=== PATIENT | female | born 1985 | race Caucasian/White ===

== ENCOUNTER 2016-11-30 06:39 | Emergency (ER) | payer OTHER ==
[~2016-11-30] VITALS: Ht 162.6 cm; Wt 136.1 kg
[~2016-11-30 06:39] MED LIST: BACTRIM DS TAB1 EACH PO; EXCEDRIN CAPLE1 EACH PO; KEFLEX500 MG PO; MOBIC15 MG PO; NOHOMEMEDICATIONS; NORCO 5-325 TA1 EACH PO; PREDNISONE 20 M20 MG PO
[2016-11-30 07:05] LABS: HEMATOCRIT 38.9 % (37.0-47.0); HEMOGLOBIN 13.3 gm/dL (12.0-15.0); MCH 31.1 pg (26.0-34.0); MCHC 34.3 g/dL (28.0-37.0); MCV 90.6 fL (80.0-100.0); RBC 4.3 mil/uL (4.20-5.00); RDW 13.5 % (10.5-14.5); WBC 9.7 thou/uL (4.0-11.0)
[2016-11-30 07:13] LABS: CALCIUM 8.8 mg/dL (8.5-10.1); CREATININE 0.8 mg/dL (0.6-1.0); POTASSIUM 4.2 mmol/L (3.5-5.1)
[2016-11-30 08:55] VITALS: BP 128/73
== END 2016-11-30 08:35 | disposition home or self-care (01) ==
LOC: ER 06:39
PROVIDERS: Emergency Medicine
DX: R05 Cough (principal); F17.210 Nicotine dependence, cigarettes, uncomplicated; Z90.89 Acquired absence of other organs

== ENCOUNTER 2018-11-03 07:41 | Emergency (ER) | payer OTHER ==
[~2018-11-03] VITALS: Ht 162.6 cm; Wt 97.5 kg
[2018-11-03 09:14] VITALS: BP 122/81
== END 2018-11-03 09:15 | disposition home or self-care (01) ==
LOC: ER 07:41
DX: S09.8XXA Other specified injuries of head, initial encounter (principal); T65.891A Toxic effect of other specified substances, accidental (unintentional), initial encounter; F17.210 Nicotine dependence, cigarettes, uncomplicated; Y04.2XXA Assault by strike against or bumped into by another person, initial encounter; Y93.89 Activity, other specified; Y92.89 Other specified places as the place of occurrence of the external cause; Y99.8 Other external cause status

== ENCOUNTER 2019-01-28 10:49 | Emergency (ER) | payer OTHER ==
[~2019-01-28] VITALS: Ht 162.6 cm; Wt 140.6 kg
[2019-01-28 12:40] LABS: CALCIUM 8.9 mg/dL (8.5-10.1); CREATININE 0.6 mg/dL (0.6-1.0)
[2019-01-28 12:46] LABS: ALBUMIN 3.1 g/dL (3.4-5.0); TOTAL BILIRUBIN 0.2 mg/dL (<0.1-1.0); TOTAL PROTEIN 6.8 g/dL (6.4-8.2)
[2019-01-28 14:02] LABS: ABSOLUTE NEUTROPHILS 3.1 thou/uL (1.4-8.2); EOSINOPHILS 2.6 % (0.0-3.0); HEMATOCRIT 36.2 % (37.0-47.0); HEMOGLOBIN 12.1 gm/dL (12.0-15.0); LYMPHOCYTES 34.1 % (24.0-44.0); MCH 30.3 pg (26.0-34.0); MCHC 33.3 g/dL (28.0-37.0); MCV 91.1 fL (80.0-100.0); MONOCYTES 7.3 % (1.0-8.0); PLATELET COUNT 365 thou/uL (150-400); RBC 3.98 mil/uL (4.20-5.00); RDW 14.2 % (10.5-14.5); WBC 5.6 thou/uL (4.0-11.0)
[2019-01-28] MEDS ORDERED: TRIAMCINOLONE A80 G2 TOP (15:03)
[2019-01-28] MEDS ORDERED: PREDNISONE 20 M20 MG PO (15:03)
[2019-01-28 15:41] VITALS: BP 124/66
--- NOTE | 2019-01-28 19:27 | EKG ---
[address] [address] ELECTROCARDIOGRAM REPORT Name: YENI LIVINGSTON Room #: DEP [facility]#: [id number] Admission: 01/28/19 Attend Phys: Discharge: 01/28/19 Date of : 81 Report #: [id number] THIS REPORT FOR: //name// [facility] ED Test Date: 2019-01-28 Test Time: 11:48:36 Pat Name: YENI SHARP Department: Room: Gender: F [employer]: DENITA : 1985 Requested By: Lazara Lo Order Number: [id number] MD: Rudi Angel Measurements Intervals [place] Rate: 104 P: 59 [place]: 169 QRS: -8 QRSD: 91 T: 21 QT: 346 QTc: 455 Interpretive Statements Sinus tachycardia No previous ECG available for comparison Electronically Signed On 01-28-2019 19:27:23 [employer] by Rudi Angel [email or web address] <ELECTRONICALLY SIGNED> By: Rudi Angel MD, [facility] 01/28/19 1927 1148 [id number] Rudi Angel MD, FACC /EPI
== END 2019-01-28 15:43 | disposition home or self-care (01) ==
LOC: ER 10:49
PROVIDERS: Nurse Practitioner Family
DX: L20.9 Atopic dermatitis, unspecified (principal); E66.9 Obesity, unspecified; F17.210 Nicotine dependence, cigarettes, uncomplicated; Z68.43 Body mass index [BMI] 50.0-59.9, adult; Z98.890 Other specified postprocedural states